=== PATIENT | male | born 1955 | race Caucasian/White ===

== ENCOUNTER → 2016-07-27 | Outpatient (CLI) | payer OTHER ==
[~2016-07-27] MED LIST: ALTACE PO; ANUSOL SUPP1 SUPP PR; ASPIRIN PO; ASPIRIN325 M1 PO; ATARAX; AUGMENTIN PO; BACTRIM DS TABL1 TAB PO; BYSTOLIC PO; BYSTOLIC10 MG PO; CALCIUM500 MG PO; CELEBREX PO; DYAZIDE 37.5/251 CAP; EFFIENT10 MG PO; FEOSOL PO; FISH OIL 1,0001 EAC2 PO; LEVEMIR100 U/ML SQ; LIPITOR; LISINOPRIL PO; MEDROL; METFORMIN PO; MEVACOR PO; MULTIVITAMIN1 UDCAP PO; ONGLYZA5 MG PO; PANTOPRAZOLE SO40 MG PO; PHENERGAN25 MG PO; PLAVIX; SIMVASTATIN40 MG PO; TOPROL XL PO; Vitamin D-3 PO; WELLBUTRIN SR PO
--- NOTE | ~2016-07-27 | CR21 ---
[facility] A Service of [facility] RADIOLOGY TEXT RESULTS PATIENT: GEORGIE RDZ LOCATION: [facility] : 51 UNIT #: [id number] AGE: [address]: JENNIFER THOMSON SEX: M ORDER DR: [id number] [address] [address] [id number] O MR#: [id number] Acc #: [id number] NAME: GEORGIE RDZ : 1955 SEX: M STUDY DATE/TIME: 07/27/2016 11:04 UNIT: [facility] ROOM: STUDY DESCRIPTION: CR Ankle Min 3 Views Rt Attending Physician: Jennifer Thomson Dpm Referring Physician: Jennifer Thomson Dpm Ordering Physician: Bijal Funez M.D. Primary Care Physician: Bijal Funez M.D. MEDICAL IMAGING REPORT This report is preliminary unless electronic signature is present. EXAM Right ankle 07/27/2016 INDICATION Pain in the right ankle since January. Injury. COMPARISON 02/13/2016. FINDINGS 3 of the right ankle were obtained. There is a fracture through the distal fibula. This fracture is the same one that was seen 02/13/2016. It has not healed. The distal fragment of the fibula is about 13 mm x 8 mm. There is a 2-3 mm gap between the fragment into the bone. The tibia is normal. IMPRESSION The distal fibular fracture that was visualized 02/13/2016 is not healed. The fracture line is still clearly visible and there is a 2 mm gap at the fracture site. Otherwise, the study is normal. Dictated by... Moses Manzanares M.D. THIS IS AN ELECTRONICALLY VERIFIED REPORT Moses Manzanares M.D. at 07/27/2016 3:27 PM BRENDA/tawnya TD: 07/27/2016 13:53 JOB #: [id number] [facility] A Service of [facility] RADIOLOGY TEXT RESULTS PATIENT: GEORGIE RDZ [facility] : 51 UNIT #: [id number] AGE: [address]: JENNIFER THOMSON SEX: M ORDER DR: MEDICAL IMAGING REPORT Page 1 of 1
== END | disposition home or self-care (01) ==
LOC: SRAD 10:41
DX: M25.571 Pain in right ankle and joints of right foot (principal); S82.831D Other fracture of upper and lower end of right fibula, subsequent encounter for closed fracture with routine healing
CPT/HCPCS: 73610